=== PATIENT | male | born 1975 ===

== ENCOUNTER 2024-09-01 10:43 | Inpatient (IN) | payer OTHER ==
[~2024-09-01] VITALS: Wt 103.9 kg
[2024-09-01] MEDS ORDERED: VITAMIN D (11:51)
[2024-09-01] MEDS ORDERED: AVAPRO300 MG PO (11:51)
[2024-09-01] MEDS ORDERED: HYDROCHLOROTHIA25 MG PO (11:52)
[2024-09-01] MEDS ORDERED: CRESTOR40 MG PO (11:52)
[2024-09-01] MEDS ORDERED: PROBIOTIC1 EAC7 (11:52)
[2024-09-08] MEDS ORDERED: METRONIDAZOLE/SODIUM CHLORIDE 500 MG/100 ML PIGGYBACK IV ONE ×2 (09:24→16:24)
[2024-09-08] MEDS ORDERED: CEFTRIAXONE SODIUM 2,000 MG VIAL ONE (09:24)
[2024-09-08] MEDS ORDERED: BUPIVACAINE HCL/MPF 0.5% 30ML VIAL ONE (09:26)
[2024-09-08] MEDS ORDERED: LIDOCAINE HCL 1%/EPINEPHRINE 20ML VIAL IJ ONE (09:26)
[2024-09-08] MEDS ORDERED: SUGAMMADEX SODIUM 200 MG/2 ML VIAL IV ONE (11:47)
[2024-09-08] MEDS ORDERED: DEXTROSE 50 % IN WATER 0.5 G/ML DISP.SYRIN IV PRN (12:00)
[2024-09-08] MEDS ORDERED: 0.9 % SODIUM CHLORIDE 1,000 ML IV SCH (12:00)
[2024-09-08] MEDS ORDERED: MORPHINE SULFATE 4 MG/ML CARTRIDGE IV PRN (12:00)
[2024-09-08] MEDS ORDERED: OxyCODONE HCL 5 MG TABLET (ROXICODONE) PO PRN (12:00)
[2024-09-08] MEDS ORDERED: ONDANSETRON HCL 2 MG/ML VIAL IV PRN (12:00)
[2024-09-08] MEDS ORDERED: HYOSCYAMINE SULFATE 0.125 MG TAB.SUBL SL SCH (13:00)
[2024-09-08] MEDS ORDERED: MORPHINE SULFATE 4 MG/ML VIAL IV ONE ×2 (13:10→15:50)
[2024-09-08] MEDS ORDERED: ACETAMINOPHEN 500 MG GEL..CAP PO SCH (14:00)
[2024-09-08] MEDS ORDERED: ENALAPRILAT DIHYDRATE 1.25 MG/ML VIAL IV PRN (14:15)
[2024-09-08] MEDS ORDERED: GABAPENTIN 300 MG CAPSULE PO ONE (16:23)
[2024-09-08] MEDS ORDERED: HYOSCYAMINE SULFATE 0.125 MG TAB.SUBL ONE (16:23)
[2024-09-08] MEDS ORDERED: POLYETHYLENE GLYCOL 3350 17 GM BLIST.PACK PO SCH (17:00)
[2024-09-08] MEDS ORDERED: METRONIDAZOLE/SODIUM CHLORIDE 500 MG/100 ML PIGGYBACK IV SCH (17:00)
[2024-09-08] MEDS ORDERED: GABAPENTIN 300 MG CAPSULE PO SCH (17:00)
[2024-09-08] MEDS ORDERED: ENALAPRILAT DIHYDRATE 1.25 MG/ML VIAL IV ONE (17:13)
[2024-09-08 17:33] LABS: HEMATOCRIT 36.2 % (39.0-48.0); HEMOGLOBIN 12.6 g/dL (13-16.00); MEAN CELL VOLUME 86.7 fL (80.0-100.00); MEAN CORPUSCULAR HGB CONC 34.7 g/dl (32.0-36.0); PLATELET COUNT 233 K/uL (150-450); RED BLOOD COUNT 4.18 M/uL (4.00-6.00); RED CELL DISTRIBUTION WIDTH 14.4 % (11.5-14.5)
[2024-09-08 17:49] LABS: ALBUMIN 3.9 gm/dL (3.4-5.0); CALCIUM 8.9 mg/dL (8.5-10.1); CREATININE SERUM 0.85 mg/dL (0.70-1.30); GFR 96.62; MAGNESIUM 1.7 mg/dL (1.8-2.4); PHOSPHOROUS 3.2 mg/dL (2.5-4.9); POTASSIUM 3.72 mEq/L (3.5-5.1)
[2024-09-08] MEDS ORDERED: FAMOTIDINE/PF 20 MG/2 ML VIAL IV PUSH SCH (21:00)
[2024-09-08] MEDS ORDERED: CELECOXIB 200 MG CAPSULE PO SCH (21:00)
[2024-09-08 21:48] VITALS: BP 143/97; O2SAT 96
[2024-09-09] VITALS: BP 146/97; O2SAT 93
[2024-09-09 06:27] LABS: HEMOGLOBIN 10.7 g/dL (13-16.00); MEAN CELL VOLUME 86.6 fL (80.0-100.00); MEAN CORPUSCULAR HEMOGLOBIN 30.8 pg (27.00-32.0); MEAN CORPUSCULAR HGB CONC 35.5 g/dl (32.0-36.0); PLATELET COUNT 227 K/uL (150-450); RED BLOOD COUNT 3.47 M/uL (4.00-6.00); RED CELL DISTRIBUTION WIDTH 14.4 % (11.5-14.5)
[2024-09-09 07:12] LABS: ALBUMIN 3.2 gm/dL (3.4-5.0); CALCIUM 8.2 mg/dL (8.5-10.1); CREATININE SERUM 0.84 mg/dL (0.70-1.30); GFR 97.94; MAGNESIUM 1.9 mg/dL (1.8-2.4); PHOSPHOROUS 3.2 mg/dL (2.5-4.9); POTASSIUM 3.92 mEq/L (3.5-5.1)
[2024-09-09 08:00] VITALS: BP 142/84; O2SAT 99
[2024-09-09] MEDS ORDERED: IRBESARTAN 300 MG TABLET PO SCH (09:00)
[2024-09-09] MEDS ORDERED: HYDROCHLOROTHIAZIDE 25 MG TABLET PO SCH (09:00)
[2024-09-09] MEDS ORDERED: SOD FERRIC GLUC COMPLX/SUCROSE 62.5 MG in 0.9 % SODIUM CHLORIDE 50 ML IV SCH (09:44)
[2024-09-09] MEDS ORDERED: Cyanocobalamin/Mecobalamin 1 TAB.SL SL SCH (09:44)
[2024-09-09] MEDS ORDERED: SODIUM CL 0.9% 50 ML IV.SOLN IV ONE (10:54)
[2024-09-09 16:40] VITALS: BP 122/82; O2SAT 95
[2024-09-09] MEDS ORDERED: ENOXAPARIN SODIUM 40 MG/0.4 ML SYRINGE SUBCUTANEO SCH (17:00)
[2024-09-10 00:30] VITALS: BP 128/76; O2SAT 100
[2024-09-10 08:00] VITALS: BP 147/82; O2SAT 94
[2024-09-10 08:24] LABS: HEMATOCRIT 27.7 % (39.0-48.0); MEAN CELL VOLUME 88.5 fL (80.0-100.00); MEAN CORPUSCULAR HGB CONC 34.7 g/dl (32.0-36.0); PLATELET COUNT 179 K/uL (150-450); RED BLOOD COUNT 3.14 M/uL (4.00-6.00); RED CELL DISTRIBUTION WIDTH 14.1 % (11.5-14.5)
[2024-09-10] MEDS ORDERED: ENOXAPARIN SODIUM 40 MG/0.4 ML SYRINGE SUBCUTANEO SCH (09:00)
[2024-09-10 09:04] LABS: ALBUMIN 3.1 gm/dL (3.4-5.0); CALCIUM 8.1 mg/dL (8.5-10.1); CREATININE SERUM 0.7 mg/dL (0.70-1.30); GFR 120.88; POTASSIUM 3.57 mEq/L (3.5-5.1)
[2024-09-10 09:19] LABS: HEMOGLOBIN 9.6 g/dL (13-16.00); MEAN CORPUSCULAR HEMOGLOBIN 30.5 pg (27.00-32.0)
[2024-09-10 11:06] LABS: PHOSPHOROUS 1.7 mg/dL (2.5-4.9)
[2024-09-10] MEDS ORDERED: AMINOCAPROIC ACID IV SCH ×2 (11:15→13:00)
[2024-09-10] MEDS ORDERED: SODIUM CHLORIDE 0.9% IV SCH ×2 (11:15→13:00)
[2024-09-10] MEDS ORDERED: POTASSIUM PHOS,M-BASIC-D-BASIC 3 MM/ML VIAL IV NR (12:00)
[2024-09-10 14:28] LABS: HEMATOCRIT 26.2 % (39.0-48.0); MEAN CELL VOLUME 86.1 fL (80.0-100.00); MEAN CORPUSCULAR HGB CONC 36.4 g/dl (32.0-36.0); PLATELET COUNT 219 K/uL (150-450); RED BLOOD COUNT 3.04 M/uL (4.00-6.00); RED CELL DISTRIBUTION WIDTH 14.2 % (11.5-14.5)
[2024-09-10 14:31] LABS: HEMOGLOBIN 9.5 g/dL (13-16.00); MEAN CORPUSCULAR HEMOGLOBIN 31.2 pg (27.00-32.0)
[2024-09-10 16:00] VITALS: BP 118/73; O2SAT 95
[2024-09-11 00:30] VITALS: BP 134/79; O2SAT 100
[2024-09-11 08:00] VITALS: BP 147/88; O2SAT 98
[2024-09-11] MEDS ORDERED: HYOSCYAMINE0.125 M1 SL (15:20)
[2024-09-11] MEDS ORDERED: CELEBREX200MG PO (15:21)
== END 2024-09-11 15:25 | disposition home or self-care (01) | DRG 331 ==
LOC: SURG 09-08 05:55 → O/R 09-08 05:55 → SURH 09-08 07:00 → SURG 09-08 15:38 → O/R 09-08 17:17 → SURG 09-08 18:24
PROVIDERS: Internal Medicine Geriatric Medicine; ADMIT Surgery; ATTEND Surgery
PROC: 0DBP4ZZ Excision of Rectum, Percutaneous Endoscopic Approach (ICD-10-PCS; 2024-09-08)
PROC: 0DJD8ZZ Inspection of Lower Intestinal Tract, Via Natural or Artificial Opening Endoscopic (ICD-10-PCS; 2024-09-08)
PROC: 0DTN4ZZ Resection of Sigmoid Colon, Percutaneous Endoscopic Approach (ICD-10-PCS; principal; 2024-09-08 07:00)
DX: K57.20 Diverticulitis of large intestine with perforation and abscess without bleeding (principal); R10.32 Left lower quadrant pain; K66.0 Peritoneal adhesions (postprocedural) (postinfection); D64.9 Anemia, unspecified; I10 Essential (primary) hypertension; E78.5 Hyperlipidemia, unspecified